=== PATIENT | female | born 1960 | race Caucasian/White ===

== ENCOUNTER → 2019-10-24 | Outpatient (CLI) | payer OTHER ==
[~2019-10-24] MED LIST: DIATRIZOATE MEGL/DIATRIZOA SOD 30 ML BTL PO ONE; DILTIAZEM ER240 M1 PO; DILTIAZEM HCL PO; IOPAMIDOL 370 MG/ML 200 ML INFUS..BTL INJ ONE; METOPROLOL TART25 MG PO; PREMARIN0.45 MG PO; SODIUM CHLORIDE 0.9% 50ML 50 ML ONE; TORSEMIDE20 MG PO; XARELTO20 MG PO
[2019-10-24 13:07] LABS: BLOOD UREA NITROGEN 11 mg/dL (7-26); BUN/CREATININE RATIO 14 (6-25); CREATININE, SERUM 0.77 mg/dL (0.57-1.11); EST GLOMERULAR FILTRATION RATE > 60 ML/MIN (60-)
--- NOTE | 2019-10-24 14:10 | Diagnostic Imaging Report ---
CT of the abdomen and pelvis, with contrast. History: Contusion of abdominal wall. Comparison: None available. Technique: Multidetector CT scanning of the abdomen and pelvis was performed from the level of the lung bases to the inferior pubic rami after intravenous and oral administration of contrast. Coronal and sagittal multiplanar reformations were obtained. RADIATION DOSE: Total DLP: 571.10 mGy*cm Dose modulation, iterative reconstruction, and/or weight based adjustment of the mA/kV was utilized to reduce the radiation dose to as low as reasonably achievable. FINDINGS: The lung bases are remarkable for areas of subsegmental atelectasis. There is partially visualized cardiomegaly with significant left atrial enlargement. There is heterogeneous enlargement of the right rectus sheath measuring up to 3.7 x 5.3 x 7.6 cm suggestive of a rectus sheath hematoma. Small amount of stranding and high density fluid noted posterior to the rectus sheath likely reflecting small amount of of blood products. No obvious extravasation of intravenous contrast material is identified on this single phase examination to suggest active bleeding. The liver is normal in size and attenuation without evidence for focal abnormality. Reflux of contrast material noted within the hepatic veins which can be seen in the setting of right-sided heart failure. The gallbladder is unremarkable. There is no biliary ductal dilatation. The stomach, spleen, pancreas, and bilateral adrenal glands are unremarkable. The kidneys are normal in size and location and enhance symmetrically. There is no evidence for hydronephrosis. No ureteral stone or dilatation is identified. Right rectus sheath hematoma slightly impresses upon the urinary bladder which is otherwise unremarkable. The uterus is not definitively visualized and may be surgically absent. No abnormal adnexal masses are identified. The abdominal aorta is normal course and caliber. The IVC is unremarkable. The visualized loops of small large bowel demonstrate no evidence of obstruction or inflammation. Diverticula are noted within the sigmoid colon and descending colon without evidence for acute diverticulitis. There is no ascites or peritoneal free air. No abnormally enlarged lymph nodes are identified within the abdomen or pelvis. The osseous structures demonstrate no evidence for acute fracture or destructive process. IMPRESSION: 1. Moderate sized right rectus sheath hematoma as detailed above. No definite evidence for intravenous contrast extravasation or active hemorrhage on this single phase examination. 2. Cardiomegaly and reflux of contrast noted within the hepatic veins which can be seen in the setting of heart failure. 3. Diverticulosis coli without evidence for acute diverticulitis. Signed by: Dr. Quintin Neumann MD on 10/24/2019 2:06 PM
== END ==
LOC: CT 11:56
PROVIDERS: ATTEND Internal Medicine Gastroenterology
DX: R10.30 Lower abdominal pain, unspecified (principal); S30.1XXA Contusion of abdominal wall, initial encounter
CPT/HCPCS: 36415; 74177; 82565; 84520; Q9967

== ENCOUNTER → 2023-04-28 | Day surgery (SDC) | payer OTHER ==
[2023-04-26 15:25] LABS: BASOPHILS % 0.5 % (0.0-1.0); EOSINOPHILS # (AUTO) 0.1 (0.0-0.4); EOSINOPHILS % 1.5 % (0.0-6.0); HEMATOCRIT 43.7 % (34.2-44.1); HEMOGLOBIN 14.6 g/dL (12.0-16.0); LYMPHOCYTES # (AUTO) 1.9 (1.0-3.2); LYMPHOCYTES % 31.9 % (18.0-39.1); MEAN CORPUSCULAR HEMOGLOBIN 32.1 pg (28-32); MEAN CORPUSCULAR HGB CONC 33.4 g/dL (31-35); MONOCYTES # (AUTO) 0.6 (0.2-0.8); MONOCYTES % 10.1 % (4.4-11.3); NEUTROPHILS # (AUTO) 3.3 (2.1-6.9); NEUTROPHILS % 55.7 % (38.7-80.0); PLATELET COUNT 204 x10e3/uL (140-360); RED BLOOD COUNT 4.55 x10e6/uL (3.6-5.1); RED CELL DISTRIBUTION WIDTH 12.9 % (11.7-14.4); WHITE BLOOD COUNT 5.86 x10e3/uL (4.8-10.8)
[~2023-04-28] MED LIST changes: -DIATRIZOATE MEGL/DIATRIZOA SOD 30 ML BTL PO ONE; +FENTANYL CITRATE/PF 100MCG/2 ML INJ ONE; +HYOSCYAMINE SULFATE 0.5 MG/ML INJ ONE; -IOPAMIDOL 370 MG/ML 200 ML INFUS..BTL INJ ONE; +LACTATED RINGER'S 1,000 ML ONE; +LIDOCAINE HCL 2% LOCAL INJ 5 ML SDV VIAL INJ ONE; +PROPOFOL IV EMULSION 10 MG/ML 20 ML VIAL ONE; +PROPOFOL IV EMULSION 10 MG/ML 50 ML VIAL IV ONE; -SODIUM CHLORIDE 0.9% 50ML 50 ML ONE
[2023-04-28 07:55] VITALS: TEMP 97.2
[2023-04-28 08:20] VITALS: BP 112/65; PULSE 98; RESP 16; O2SAT 97
== END | disposition home or self-care (01) ==
LOC: OR 06:00
PROVIDERS: ATTEND Internal Medicine Gastroenterology
DX: Z12.11 Encounter for screening for malignant neoplasm of colon (principal); D12.2 Benign neoplasm of ascending colon; K62.1 Rectal polyp; K57.30 Diverticulosis of large intestine without perforation or abscess without bleeding; K64.8 Other hemorrhoids; K80.20 Calculus of gallbladder without cholecystitis without obstruction; I10 Essential (primary) hypertension; I48.91 Unspecified atrial fibrillation; Z68.27 Body mass index [BMI] 27.0-27.9, adult; Z71.3 Dietary counseling and surveillance; Z01.810 Encounter for preprocedural cardiovascular examination; Z01.812 Encounter for preprocedural laboratory examination; Z79.01 Long term (current) use of anticoagulants
CPT/HCPCS: 36415; 45378; 45385; 85025; 93005; J1980; J2001

== ENCOUNTER 2025-02-11 22:21 | Emergency (ER) | payer OTHER ==
[~2025-02-11] VITALS: Ht 167.6 cm; Wt 70.8 kg
[~2025-02-11 22:21] MED LIST changes: -FENTANYL CITRATE/PF 100MCG/2 ML INJ ONE; -HYOSCYAMINE SULFATE 0.5 MG/ML INJ ONE; -LACTATED RINGER'S 1,000 ML ONE; -LIDOCAINE HCL 2% LOCAL INJ 5 ML SDV VIAL INJ ONE; -PROPOFOL IV EMULSION 10 MG/ML 20 ML VIAL ONE; -PROPOFOL IV EMULSION 10 MG/ML 50 ML VIAL IV ONE
[2025-02-11 22:47] VITALS: TEMP 97.9
[2025-02-11] MEDS ORDERED: TETANUS/DIPHTHERIA TOX ADULT 0.5 ML SYR ONE (23:43)
[2025-02-12] MEDS: TETANUS/DIPHTHERIA TOX ADULT 0.5 ML SYR IM ONE (00:02)
[2025-02-12 00:30] VITALS: PULSE 76; RESP 16
[2025-02-12] MEDS ORDERED: ULTRAM 50MG50 MG PO (00:38)
[2025-02-12] MEDS ORDERED: AMOX TR-K CLV1 EAC2 PO (00:38)
[2025-02-12 01:18] VITALS: BP 118/75; O2SAT 99
[2025-02-12] MEDS: KETOROLAC TROMETHAMINE 30 MG/ML VIAL IM STA (01:21)
== END 2025-02-12 00:45 | disposition home or self-care (01) ==
LOC: ER 22:26
DX: S41.151A Open bite of right upper arm, initial encounter (principal); W54.0XXA Bitten by dog, initial encounter; Y92.89 Other specified places as the place of occurrence of the external cause; I48.91 Unspecified atrial fibrillation
CPT/HCPCS: 90471; 90714; 99283; J1885